=== PATIENT | male | born 1980 | race Caucasian/White ===

== ENCOUNTER 2019-06-06 14:58 | Emergency (ER) | payer OTHER ==
[~2019-06-06] VITALS: Ht 177.8 cm; Wt 77.1 kg
== END 2019-06-06 21:16 | disposition home or self-care (01) ==
LOC: ER 14:58
DX: R10.13 Epigastric pain (principal); M25.512 Pain in left shoulder; M25.511 Pain in right shoulder; M62.830 Muscle spasm of back